=== PATIENT | male | born 1970 | race Two or more races ===

== ENCOUNTER 2018-10-13 07:07 | Day surgery (SDC) | payer OTHER ==
[2018-10-09 13:03] VITALS: BMI 24.4
[2018-10-13] MEDS ORDERED: oxyCODONE HCL 10 MG SUSTAINED ACTING TABLET PO ONE (07:22)
[2018-10-13] MEDS ORDERED: MIDAZOLAM HCL 2 MG/2 ML SINGLE DOSE VIAL ONE ×2 (07:33→07:52)
[2018-10-13] MEDS ORDERED: SUCCINYLCHOLINE CHLORIDE 200 MG/10 ML VIAL ONE (07:33)
[2018-10-13] MEDS ORDERED: ePHEDrine SULFATE 50 MG/1 ML AMPULE ONE (07:33)
[2018-10-13] MEDS ORDERED: PROPOFOL 20 ML ONE (07:33)
[2018-10-13] MEDS ORDERED: DEXAMETHASONE SOD PHOSPHATE/PF 10 MG/ML SDV ONE (07:52)
[2018-10-13] MEDS ORDERED: BUPIVACAINE HCL/PF (5 MG/ML) 30 ML VIAL IJ ONE (07:52)
--- NOTE | 2018-10-13 07:59 | HP ---
History & Physical Update - History History: No Change - Physical Physical: No Change - Assessment Assessment: No Change - Plan Plan: No Change
[2018-10-13] MEDS ORDERED: LIDOCAINE 1%/EPI 1:100000 (50 ML MULTI DOSE VIAL) INF ONE (08:30)
[2018-10-13] MEDS ORDERED: GELATIN, ABSORBABLE 100 EACH SPONGE TP ONE (09:33)
[2018-10-13] MEDS ORDERED: THROMBIN (BOVINE) 5,000 UNIT VIAL TP ONE (09:33)
[2018-10-13] MEDS ORDERED: methylPREDNISolone ACET (DEPO) 40 MG/1 ML VIAL IM ONE (09:34)
--- NOTE | 2018-10-13 10:42 | OP ---
Operative Note - Note: Operative Date: 10/13/18 Pre-Operative Diagnosis: lumbar stenosis, disc herniation Lumbar-L4-5 Operation: laminectomy of L4-5, microdisectomy, duraseal placment and patch Surgeon: Jose Mills Logistics And Planning Manager: Shantal Bruner Anesthesiologist/COMMODITY MERCHANT: Donovan Zuñiga Anesthesia: Spinal Estimated Blood Loss (mls): 20 Fluid Volume Replaced (mls): 1,000 Operative Report Dictated: Yes
[2018-10-13] MEDS ORDERED: ONDANSETRON 4 MG/2 ML VIAL IVPUSH PRN (11:46)
[2018-10-13] MEDS ORDERED: oxyCODONE HCL 5 MG TABLET PO PRN (11:46)
[2018-10-13] MEDS ORDERED: LACTATED RINGERS SOLUTION 1,000 ML IV SCH (12:00)
[2018-10-13 12:03] VITALS: TEMP 98.2
[2018-10-13 14:39] VITALS: BP 123/75; PULSE 92
--- NOTE | 2018-10-13 14:49 | SURG ---
Surgery Rheumatology Nurse Note Rheumatology Nurse: Shantal Bruner PA-C Date of Service: 10/13/18 Diagnosis: lumbar stenosis, disc herniation Lumbar-L4-5 Procedure: laminectomy of L4-5, microdisectomy, duraseal placment and patch I was present for the entirety of the operative procedure. For further detail, please refer to operative report. Visit type - Case Type Case Type: Scheduled - Emergency Emergency Visit: No - New patient This patient is new to me today: Yes Date on this admission: 10/13/18
--- NOTE | 2018-10-14 08:53 | OP ---
DATE OF OPERATION: 10/13/2018 PREOPERATIVE DIAGNOSIS: Spinal stenosis L4-L5. POSTOPERATIVE DIAGNOSIS: Spinal stenosis L4-L5. PROCEDURE PERFORMED: Laminectomy L4-L5. SURGEON: Jose Mills MD ART TRACER: PRECIOUS Guerrero ESTIMATED BLOOD LOSS: 50 mL. IV FLUIDS: Per Anesthesia. ANESTHESIA: Spinal. COMPLICATIONS: None. DISPOSITION: The patient was brought to the PACU in stable condition. INDICATIONS FOR SURGERY: The patient is a 48-year-old male c/o pain in the right leg for 3 month he had noticed a significant weakness in his right foot where he got to the point where he had a foot drop. X-rays and MRI were completed, which noted that he had herniated L4-L5 with compression of the L5 nerve which resulted in a foot drop that he has had for 1 month. We discussed nonoperative and operative treatment. After a thorough discussion , the patient consented to have surgery. DESCRIPTION OF PROCEDURE: The patient was brought to the operating room by the Anesthesia staff. After appropriate patient identification was performed, spinal anesthesia was given. A TLIF block was also given. The patient was able to position himself prone onto the OR table with all areas of bony prominences well padded at this time. Two needles were placed into his back to he off the L4-L5 level. X-ray was taken to confirm this was correct. The needle was removed, and 10 mL of lidocaine with epinephrine was injected into his back. At this time, his back was prepped and draped in a sterile manner. At this point, a time-out was completed. An incision was made from the top of L4 down to the bottom of L5. Dissection was carried down to the fascia. Fascia was split open at this time. Appropriate retraction was placed in. A spinal needle was placed onto the L4 lamina to he off the L4-L5 level. X-rays were taken to confirm this was correct. The needle was removed, and the microscope was brought in. At this point, the interspinous ligament at L4-L5 was removed. A portion of the L4-L4 spinous process were removed. Flavum was identified, which was removed. Portion of the superior facet was removed. Dura was mobilized medially. Disc herniation was removed at this time. All bleeding was well controlled at this time. Steri-Strips was placed over the nerve root. FloSeal was placed over that. The fascia was closed with a No. 1 Vicryl suture. The subcutaneous tissue was closed with 2-0 Vicryl suture. The skin was closed with 3-0 Monocryl suture. Dermabond was applied. Steri-Strips were applied. A sterile dressing was applied. The patient was placed supine on the OR bed and brought to the PACU in stable condition. Elroy LUO/[id number] MTDD
--- NOTE | 2018-10-15 16:47 | PATH ---
Surgical Pathology Report Patient Name: ANA JACOB [facility]. Rec. #: [id number] /Age/Gender: 1970 (Age: 48) / M Account: [id number] Location: [facility] Taken: 10/13/2018 Received: 10/13/2018 Reported: 10/15/2018 Physicians: Jose Mills M.D. Specimen(s) Received L4-5 DISC Clinical History Spinal stenosis Final Diagnosis L4-5 DISC, LAMINECTOMY: BENIGN INTERVERTEBRAL DISC TISSUE. Electronically Signed Tiki Tam M.D. Gross Description Received in formalin labeled "L4-5 disc," is a 2.3 x 2.3 x 0.3 cm aggregate of stephens fragments of fibrocartilaginous tissue. The specimen is submitted in toto in one cassette. 10/14/201810/14/2018
== END 2018-10-13 14:55 | disposition home or self-care (01) ==
LOC: FASU 07:07
PROVIDERS: ATTEND Orthopaedic Surgery Orthopaedic Surgery of the Spine
PROC: 01NB0ZZ Release Lumbar Nerve, Open Approach (ICD-10-PCS; principal; 2018-10-13 09:26)
DX: M48.061 Spinal stenosis, lumbar region without neurogenic claudication (principal)
CPT/HCPCS: 72100-TC-FY; 88304-TC; 94760